=== PATIENT | female | born 1935 | race Caucasian/White ===

== ENCOUNTER 2022-12-15 09:45 | Outpatient (CLI) | payer OTHER | END 2022-12-15 09:46 | disposition home or self-care (01) | LOC: ULT 09:45 | PROVIDERS: ATTEND Family Medicine | DX: R10.2 Pelvic and perineal pain (principal); R30.0 Dysuria; Z87.440 Personal history of urinary (tract) infections; R16.1 Splenomegaly, not elsewhere classified; K76.0 Fatty (change of) liver, not elsewhere classified | CPT/HCPCS: 76700; 76856 ==